=== PATIENT | female | born 2000 | race Hispanic/Latino ===

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

== ENCOUNTER 2021-09-04 12:16 | Emergency (ER) | payer OTHER ==
[~2021-09-04] VITALS: Ht 162.6 cm; Wt 172.0 kg
[2021-09-04] MEDS ORDERED: METFORMIN500 M2 PO (14:45)
[2021-09-04] MEDS ORDERED: ALBUTEROL SUL0.083 % IN (14:45)
[2021-09-04] MEDS ORDERED: PROAIR HFA108 MCG/AC (14:45)
[2021-09-04] MEDS ORDERED: PREDNISONE50 MG PO (15:41)
[2021-09-04] MEDS ORDERED: ZPAK PO (15:41)
[2021-09-04] MEDS ORDERED: PROAIR HFA108 MCG/AC PO (15:44)
[2021-09-04 16:39] VITALS: BP 112/78
== END 2021-09-04 16:39 | disposition home or self-care (01) ==
LOC: ED 12:16
DX: J45.901 Unspecified asthma with (acute) exacerbation (principal); Z20.822 Contact with and (suspected) exposure to COVID-19

== ENCOUNTER 2021-11-25 14:25 | Emergency (ER) | payer OTHER ==
[~2021-11-25] VITALS: Ht 162.6 cm; Wt 173.0 kg
[~2021-11-25 14:25] MED LIST changes: +METFORMIN500 M2 PO; +PREDNISONE50 MG PO; +PROAIR HFA108 MCG/AC; +PROAIR HFA108 MCG/AC PO; +ZPAK PO
[2021-11-25 15:15] VITALS: BP 131/79
[2021-11-25 16:00] VITALS: BP 114/67
[2021-11-25 16:04] LABS: URINE BILIRUBIN - DIPSTICK NEGATIVE (NEGATIVE); URINE BLOOD DIPSTICK LARGE (NEGATIVE); URINE COLOR YELLOW; URINE GLUCOSE - DIPSTICK NEGATIVE (NEGATIVE); URINE KETONE NEGATIVE (NEGATIVE); URINE LEUK ESTERASE NEGATIVE (NEGATIVE); URINE PROTEIN - DIPSTICK 30 mg/dL (NEG-TRACE); URINE SPECIFIC GRAVITY >=1.030; URINE UROBILINOGEN - DIPSTICK 0.2 E.U./dL (0.2)
[2021-11-25 16:08] LABS: URINE NITRITE - DIPSTICK NEGATIVE (Negative)
[2021-11-25 16:16] LABS: URINE RBC 25-50 RBC/hpf (0-5); URINE SQUAMOUS EPITHELIAL CELL FEW EPI/hpf (0-FEW); URINE WBC 0-2 WBC/hpf (0-5)
[2021-11-25 16:34] LABS: HEMATOCRIT 41.6 % (37.0-47.0); HEMOGLOBIN 12.7 g/dl (12.0-16.0); MEAN CELL VOLUME 80.2 fL CALC (80.0-100.0); MEAN CORPUSCULAR HGB 24.5 pG CALC (26.0-32.0); MEAN CORPUSCULAR HGB CONC 30.5 g/dL CAL (32.0-36.0); NEUT# 5.6 thou/uL (2.00-7.15); RED BLOOD COUNT 5.19 mill/uL (4.20-5.60); RED CELL DISTRI WIDTH 15.7 % (11.5-15.5)
[2021-11-25 16:51] LABS: ALBUMIN 4.1 g/dL (3.2-5.0); ALKALINE PHOSPHATASE 118 u/l (38-126); ANION GAP 11 (6-22 (CALC)); BILIRUBIN, TOTAL 0.5 mg/dL (0.0-1.4); BUN 12 mg/dL (7-17); BUN/CREATININE RATIO 19 (12-20 (CALC)); CARBON DIOXIDE 30 mmol/l (22-30); CHLORIDE 103 mmol/l (95-108); CREATININE 0.6 mg/dL (0.5-1.0); GFR > 60 ML/MIN (>=60 (CALC)); GFR FOR AFR.AMER. > 60 ML/MIN (>=60 (CALC)); POTASSIUM 3.9 mmol/l (3.5-5.1); SGOT/AST 21 u/l (14-36); SODIUM 139 mmol/l (137-146); TOTAL PROTEIN 7.8 g/dL (6.3-8.2)
[2021-11-25 17:06] LABS: BETA-HCG, QUANT(RESULT NUMBER) <2 mIU/mL
[2021-11-25 18:08] VITALS: BP 114/67
== END 2021-11-25 18:16 | disposition home or self-care (01) ==
LOC: ED 14:25
PROVIDERS: Internal Medicine
DX: N93.8 Other specified abnormal uterine and vaginal bleeding (principal); J45.909 Unspecified asthma, uncomplicated